=== PATIENT | female | born 1955 ===

== ENCOUNTER → 2017-12-30 | Outpatient (CLI) | payer BC ==
[~2017-12-30] MED LIST: DOCU-416 PO; IBUP-136 PO; OXYC-865 PO; PANT40TA65 PO
--- NOTE | 2017-12-30 14:25 | RADIOLOGY IMAGING REPORT ---
FACILITY: [facility] [place] PATIENT NAME: Marisol Fermin : 1955 MR: [id number] V: [id number] EXAM DATE: ORDERING PHYSICIAN: LISA NORRIS TECHNOLOGIST: Location: [facility] [place] Patient: Marisol Fermin : 1955 Visit/Account:[id number] Date of Sevice: 12/30/2017 GALLBLADDER HISTORY: Postprandial abdominal pain COMPARISON: None. FINDINGS: Gallbladder: There is a 1.3 cm stone lodged in the gallbladder neck. There is thick sludge also note d within the gallbladder and the gallbladder wall is thickened at 4.9 mm. There is a negative Crisostomo sign by technologist notation Liver: Negative. Common duct: Normal, 4.5 mm diameter. Pancreas: Partially obscured by bowel, visualized aspects unremarkable. Right kidney: Unremarkable as imaged measuring 10.7 cm in length Upper abdominal aorta and IVC: Patent. Ascites: None visualized. IMPRESSION: 1.3 cm stone lodged in the gallbladder neck. Thick sludge is also present in addition to gallbladder wall thickening. There was a negative Crisostomo sign by technologist notation Report Dictated By: Jackie Irene MD at 12/30/2017 2:17 PM Report E-Signed By: Jackie Irene MD at 12/30/2017 2:20 PM SERGEN:JOYCE
== END ==
LOC: US 03:42
PROVIDERS: ATTEND Surgery
DX: K80.21 Calculus of gallbladder without cholecystitis with obstruction (principal)
CPT/HCPCS: 76705